=== PATIENT | female | born 1990 | race Caucasian/White ===

== ENCOUNTER 2016-08-02 21:28 | Emergency (ER) | payer OTHER ==
[2016-08-02 21:35] VITALS: BP 119/69; PULSE 87; TEMP 97.6; BMI 40.3
[2016-08-02] MEDS ORDERED: HEMOQUE TEST 1 EACH EACH ONE (21:58)
[2016-08-02] MEDS ORDERED: ONDANSETRON 4 MG/2 ML VIAL IVPB ONE (22:10)
[2016-08-02] MEDS ORDERED: SODIUM CHLORIDE 1,000 ML IV ONE (22:10)
--- NOTE | 2016-08-02 22:10 | PDOC ---
History of Present Illness - General Chief Complaint: Nausea/Vomiting Stated Complaint: NAUSEA/VOMITING/ANXIETY Time Seen by Provider: 08/02/16 21:33 History Source: Patient Exam Limitations: No Limitations - History of Present Illness Initial Comments: 08/02/16 23:11 This is a 26-year-old female who comes in complaining of nausea vomiting and dehydration. Patient said she also has a history of anxiety and ran out of her anxiety medicines 2 days ago. Patient went to [facility] today to get some more anxiety medicine and was told she needs to come to the ER for evaluation of the nausea and vomiting. Patient said that she has been depressed but denies being suicidal or feeling suicidal or any plan to hurt herself. Patient said plan is to go back to [facility] on Friday and get her anxiety medicine and be reevaluated. Patient denies any chest pain, shortness of breath , cough, congestion, fever, chills, frequency, dysuria, vaginal complaints. Patient has a second complaint and that she said she was bit by her dog when she was trying put eardrops in it and is concerned that her right thumb may have a small infection. PAST MEDICAL HISTORY: no significant history PAST SURGICAL HISTORY: no significant history FAMILY HISTORY: no pertinant history SOCIAL HISTORY: Pt lives with family and is employed. MEDICATIONS: reviewed ALLERGIES: As per nursing notes Review of Systems General: No fevers or chills, no weakness, no weight loss HEENT: No change in vision. No sore throat,. No ear pain CardioVascular: No chest pain or shortness of breath Respiratory:No cough, or wheezing. Gastrointestinal: + nausea, + vomitting, no diarrhea or constipation, No rectal bleeding Genitourinary: No dysuria, hematuria, or frequency Musculoskeletal: No joint or muscle pain or swelling Neurologic: No headache, vertigo, dizziness or loss of consciousness Psychiatric: +depression and + anxiety Skin: + Right thumb infection Endocrine: no increased thirst or abnormal weight change Allergic: no skin or latex allergy All other systems reviewed and normal Exam: General: Well-nourished well-developed individual, no acute distress HEENT: Throat: Normal, tonsils normal, no erythema or exudate, mucous membranes are dry Neck: Supple, no meningeal signs, no lymphadenopathy Eyes::Pupils equal reactive and round, extraocular motion intact Chest: Nontender to palpation Cardiac: S1-S2 normal, regular rate and rhythm, no murmurs rubs or gallops Respiratory: Lungs clear to auscultation bilateral Abdomen: Soft, nondistended, normal bowel sounds, nontender to palpation diffusely Extremities: Warm, dry, no cyanosis, clubbing, or edema Right thumb there is some mild erythema and slight increase in warmth and swelling in the area of a puncture wound. There is still full range of motion with some mild discomfort neurovascular is intact Skin: No rashes Neuro: Alert and oriented x3, nonfocal exam, grossly intact, normal gait Psych: Normal mood and affect Assessment and plan: This is a 26-year-old female with vomiting who came in for evaluation. Patient stopped taking her antianxiety medication but had only been on it for a month so unlikely that this is secondary to withdrawal of her medication. Patient is also a diabetic and her sugar was mildly elevated at 200 but there is no anion gap. Past History - Past Medical History Allergies/Adverse Reactions: Allergies Allergy/AdvReac Type Severity Reaction Status Date / Time No Known Allergies Allergy Verified 03/28/13 05:07 Home Medications: Ambulatory Orders Amoxicillin/Potassium Clav [Augmentin 500-125 Tablet] 1 each PO BID #14 tablet 08/02/16 Escitalopram Oxalate [Lexapro -] 20 mg PO DAILY 08/02/16 Lorazepam 2 mg PO BID 08/02/16 Lorazepam 2 mg PO BID #5 tablet MDD 2 08/02/16 Metformin HCl 500 mg PO DAILY 08/02/16 Ondansetron [Zofran Odt -] 4 mg SL TID #12 od.tablet 08/02/16 Diabetes: Yes Psychiatric Problems: Yes (ANXIETY/DEPRESSION) - Immunization History Td Vaccination: Yes Immunization Up to Date: Yes - Psycho/Social/Smoking Cessation Hx Anxiety: No Suicidal Ideation: No Smoking History: Current some day smoker Have you smoked in the past 12 months: Yes Number of Cigarettes Smoked Daily: 1 Cigars Per Day: 0 Information on smoking cessation initiated: Yes 'Breaking Loose' booklet given: 08/02/16 Hx Alcohol Use: No *Physical Exam - Vital Signs Last Vital Signs Temp Pulse Resp BP Pulse Ox 97.6 F 87 20 119/69 100 08/02/16 21:32 08/02/16 21:32 08/02/16 21:32 08/02/16 21:32 08/02/16 21:32 ED Treatment Course - LABORATORY CBC & Chemistry Diagram: 08/02/16 22:12 08/02/16 22:12 *DC/Admit/Observation/Transfer Diagnosis at time of Disposition: Nausea & vomiting, Finger infection, Anxiety - Discharge Dispostion Disposition: HOME Condition at time of disposition: Stable - Prescriptions Prescriptions: Amoxicillin/Potassium Clav [Augmentin 500-125 Tablet] 1 each PO BID #14 tablet Lorazepam 2 mg PO BID #5 tablet MDD 2 Ondansetron [Zofran Odt -] 4 mg SL TID #12 od.tablet - Referrals Referrals: Avis Ansari [Primary Care Provider] - - Patient Instructions Printed Discharge Instructions: DI for Vomiting -- Adult Additional Instructions: If you have any further nausea or vomiting U can take Zofran 1 tablet as often as 3 times a day dissolve under your tongue. For anxiety take Ativan 1 tablet twice a day make sure you follow-up with your doctor at [facility] on Friday. For the infection in your finger take Augmentin one tablet twice a day for 7 days If you feel the suicidal or depressed her feel like he wanted to hurt herself go to either [facility] where they have a outpatient psychiatric evaluation person. Clear liquids only for the next 6 hours.. After that if you have had no further vomiting you may have bananas, rice, applesauce, or toast. If no further vomiting for another 8 hours you may have regular food. If you vomit again then nothing to eat or drink for 2 hours. then start back with the clear liquids. Return to the emergency department immediately with ANY new, persistent or worsening symptoms. You MUST call and follow up with your doctor tomorrow if not better. Please make sure your doctor reviews the results of your emergency evaluation.
[2016-08-02] MEDS ORDERED: ONDANSETRON 4 MG/2 ML VIAL ONE (22:12)
[2016-08-02 22:36] LABS: BASOPHIL 1.5 % (0-2.0); EOSINOPHIL 0.2 % (0-4.5); MCH 31.1 pg (25.7-33.7); MCHC 34.5 g/dl (32.0-36.0); MEAN CELL VOLUME 90.2 fl (80-96); MEAN PLT VOLUME 9.8 fl (7.5-11.1); PLATELET COUNT 294 K/MM3 (134-434); WHITE BLOOD COUNT 11.3 K/mm3 (4.0-10.0)
[2016-08-02 22:44] LABS: ALBUMIN 4.1 g/dl (3.5-5.0); ALK PHOS 70 U/L (32-92); ANION GAP 12 (8-16); BILIRUBIN,TOTAL 0.5 mg/dl (0.2-1.0); CALCIUM 9.4 mg/dl (8.4-10.2); CO2 22 mmol/L (22-28); CREATININE 0.7 mg/dl (0.6-1.3); GLUCOSE,RANDOM 205 mg/dl (74-106); SGOT/AST 33 U/L (10-42); SGPT/ALT 45 U/L (10-40); TOT PROT 7.8 g/dl (6.4-8.3)
[2016-08-02] MEDS ORDERED: AMOX TR/POT CLAV 500MG/125MG TABLETS (FP) PO ONE (23:17)
[2016-08-02] MEDS ORDERED: LORazepam 1 MG TABLET PO ONE (23:18)
[2016-08-02] MEDS ORDERED: LORazepam 0.5 MG TABLET ONE (23:19)
[2016-08-02] MEDS ORDERED: AMOX TR/POT CLAV 500MG/125MG TABLETS (FP) ONE (23:20)
[2016-08-02 23:42] LABS: PH,URINE 5.5 (4.5-8); URINE APPEARANCE Clear; URINE BILIRUBIN Negative (NEGATIVE); URINE BLOOD Negative (NEGATIVE); URINE GLUCOSE (UA) Trace (NEGATIVE); URINE KETONE 3+ (NEGATIVE); URINE LEUK ESTERASE Negative (NEGATIVE); URINE NITRITE Negative (NEGATIVE); URINE UROBILINOGEN 0.2 E.U/dl (0.2-1.0)
[2016-08-02 23:46] LABS: URINE COLOR YELLOW; URINE PROTEIN 1+ (NEGATIVE)
[2016-08-02 23:54] LABS: URINE BACTERIA FEW /hpf (NEGATIVE); URINE RBC 0-2 /hpf (0-3); URINE WBC 0-1 (3-5)
== END 2016-08-03 00:14 | disposition home or self-care (01) ==
LOC: FER 21:28
PROC: 3E033GC Introduction of Other Therapeutic Substance into Peripheral Vein, Percutaneous Approach (ICD-10-PCS; principal; 2016-08-02)
PROC: 3E0337Z Introduction of Electrolytic and Water Balance Substance into Peripheral Vein, Percutaneous Approach (ICD-10-PCS; 2016-08-02)
DX: F41.9 Anxiety disorder, unspecified (principal); L08.9 Local infection of the skin and subcutaneous tissue, unspecified; R11.2 Nausea with vomiting, unspecified
CPT/HCPCS: 36415; 80053; 81003; 81015; 84703; 85025; 99283-25